=== PATIENT | male | born 1980 | race Caucasian/White ===

== ENCOUNTER 2019-02-10 07:25 | Emergency (ER) | payer SELFPAY ==
--- NOTE | 2019-02-10 07:42 | EDM.PDOC ---
ED HPI GENERAL MEDICAL PROBLEM - General Chief Complaint: Upper Extremity Injury/Pain Stated Complaint: POSSIBLE BROKEN RIGHT HAND Time Seen by Provider: 02/10/19 07:34 - History of Present Illness INITIAL COMMENTS - FREE TEXT/NARRATIVE: HISTORY AND PHYSICAL: History of present illness: Patient is a 38-year-old white male presents 3 days status post injury to his right hand and wrist that occurred when he punched a car dashboard who presents with concern of right hand and wrist pain denies other trauma or concern Review of systems: As per history of present illness and below otherwise all systems reviewed and negative. Past medical history: As per history of present illness and as reviewed below otherwise noncontributory. Surgical history: As per history of present illness and as reviewed below otherwise noncontributory. Social history: No reported history of drug or alcohol abuse. Family history: As per history of present illness and as reviewed below otherwise noncontributory. Physical exam: HEENT: Atraumatic, normocephalic, pupils reactive, negative for conjunctival pallor or scleral icterus, mucous membranes moist, throat clear, neck supple, nontender, trachea midline. Lungs: Clear to auscultation, breath sounds equal bilaterally, chest nontender. Heart: S1S2, regular, negative for clicks, rubs, or JVD. Abdomen: Soft, nondistended, nontender. Negative for masses or hepatosplenomegaly. Negative for costovertebral tenderness. Pelvis: Stable nontender. Genitourinary: Deferred. Rectal: Deferred. Extremities: Patient has tenderness over the dorsal aspect of his wrist and hand is no gross deformity CMS and neurovascular exams unremarkable Neuro: Awake, alert, oriented. Cranial nerves II through XII unremarkable. Cerebellum unremarkable. Motor and sensory unremarkable throughout. Exam nonfocal. Diagnostics: X-ray right hand/wrist Therapeutics: Velcro splint Impression: #1 hand/wrist injury Definitive disposition and diagnosis as appropriate pending reevaluation and review of above. - Related Data Allergies Allergy/AdvReac Type Severity Reaction Status Date / Time No Known Allergies Allergy Verified 02/10/19 07:36 Home Meds: Home Meds . [No Known Home Meds] 02/10/19 [History] Review of Systems - Review of Systems Review Of Systems: Comprehensive ROS is negative, except as noted in HPI. ED EXAM, GENERAL - Physical Exam Exam: See Below (See dictation) Course - Orders/Labs/Meds Orders: Active Orders 24 hr Category Date Time Status Hand Comp Min 3V Rt [CR] Stat Exams 02/10/19 07:32 Ordered Wrist Comp Min 3V Rt [CR] Stat Exams 02/10/19 07:32 Ordered Departure - Departure Time of Disposition: 07:40 Disposition: Home, Self-Care 01 Condition: Good Clinical Impression: Hand injury, Wrist injury - Discharge Information Referrals: PCP,None [Primary Care Provider] - Additional Instructions: The following information is given to patients seen in the emergency department who are being discharged to home. This information is to outline your options for follow-up care. We provide all patients seen in our emergency department with a follow-up referral. The need for follow-up, as well as the timing and circumstances, are variable depending upon the specifics of your emergency department visit. If you don't have a primary care physician on staff, we will provide you with a referral. We always advise you to contact your personal physician following an emergency department visit to inform them of the circumstance of the visit and for follow-up with them and/or the need for any referrals to a consulting specialist. The emergency department will also refer you to a specialist when appropriate. This referral assures that you have the opportunity for followup care with a specialist. All of these measure are taken in an effort to provide you with optimal care, which includes your followup. Under all circumstances we always encourage you to contact your private physician who remains a resource for coordinating your care. When calling for followup care, please make the office aware that this follow-up is from your recent emergency room visit. If for any reason you are refused follow-up, please contact the [facility] emergency department at and asked to speak to the emergency department charge nurse. [] - My Orders Last 24 Hours: My Active Orders 02/10/19 07:32 Hand Comp Min 3V Rt [CR] Stat Wrist Comp Min 3V Rt [CR] Stat - Assessment/Plan Last 24 Hours: My Active Orders 02/10/19 07:32 Hand Comp Min 3V Rt [CR] Stat Wrist Comp Min 3V Rt [CR] Stat
--- NOTE | 2019-02-10 07:55 | CR ---
INDICATION: Right hand injury. TECHNIQUE: Three views of the right hand. COMPARISON: Today`s right wrist x-rays. FINDINGS: Dorsal soft tissue swelling over the metacarpal heads. No fracture, subluxation or other abnormality. IMPRESSION: Unremarkable except for soft tissue swelling dorsal to the metacarpal heads. Dictated by Clement Jung MD @ Feb 10 2019 7:50AM Signed by Dr. Clement Jung @ Feb 10 2019 7:53AM
--- NOTE | 2019-02-10 07:55 | CR ---
INDICATION: Right wrist injury. TECHNIQUE: Three views of the right wrist. COMPARISON: Today`s right hand x-rays. FINDINGS: No fracture, subluxation or other abnormality. CONCLUSION: Negative right wrist. Dictated by Clement Jung MD @ Feb 10 2019 7:53AM Signed by Dr. Clement Jung @ Feb 10 2019 7:54AM
== END 2019-02-10 08:13 | disposition home or self-care (01) ==
LOC: MW.ED 07:25
DX: S49.91XA Unspecified injury of right shoulder and upper arm, initial encounter (principal); W22.09XA Striking against other stationary object, initial encounter
CPT/HCPCS: 29125; 73110-26-RT; 73110-RT; 73130-26-RT; 73130-RT; 99282; 99283-25

== ENCOUNTER 2019-04-19 05:50 | Emergency (ER) | payer OTHER ==
--- NOTE | 2019-04-19 06:04 | EDM.PDOC ---
ED HPI GENERAL MEDICAL PROBLEM - General Chief Complaint: Genitourinary Problem Stated Complaint: BLOOD IN URINE, PAIN WHEN URINATING Time Seen by Provider: 04/19/19 05:54 Source of Information: Reports: Patient History Limitations: Reports: No Limitations - History of Present Illness INITIAL COMMENTS - FREE TEXT/NARRATIVE: CC hematuria HPI: This is a 38 year old male with sudden onset left flank pain and hematuria for the past few hours. Patient denies any trauma nausea vomiting constipation diarrhea or dysuria PMHX/PSHX: Negative Social HX: Is a tobacco smoker but otherwise negative for drugs or alcohol ROS: Negative other than for genitourinary patient complaining of flank pain and hematuria PE: VS rile vital signs stable General: No apparent distress Head: Atraumatic normocephalic no lumps bumps or bruises Eyes: EOMI PERRLA Ears: TMs intact no hemotympanum no signs of infection no mastoid tenderness Nose: No epistaxis nares patent no septal wall hematoma Throat: Pharyngeal erythema or exudate no tonsillar enlargement Neck: Supple, no cervical lymphadenopathy Chest wall: No point tenderness Heart: Regular rate and rhythm without murmur gallop or rub Lungs: There to auscultation and percussion without rales rhonchi or wheeze Abdomen: Soft nontender nondistended without guarding rigidity or rebound Neck: No spinal point tenderness full range of motion in all 6 directions Back: No spinal paraspinal is left CVA tenderness Extremities: full rom through out. no effusions skin: Warm dry intact no rashes MDM/ED Course: Differential diagnosis: Aortic dissection pyelonephritis ureterolithiasis ED Course: Diagnosis: Disposition: Duration: Hour(s): left groin/urinary Pain Score (Numeric/FACES): 10 - Related Data Allergies Allergy/AdvReac Type Severity Reaction Status Date / Time No Known Allergies Allergy Verified 04/12/19 15:21 Home Meds: Home Meds Acetaminophen/HYDROcodone [[place] 325-5 MG] 1 tab PO Q4H #15 tablet 04/19/19 [Rx] Sulfamethoxazole/Trimethoprim [Bactrim Ds Tablet] 1 each PO BID 5 Days #10 tablet 04/19/19 [Rx] Past Medical History HEENT History: Reports: None Cardiovascular History: Reports: None Respiratory History: Reports: None Gastrointestinal History: Reports: None Genitourinary History: Reports: None Musculoskeletal History: Reports: Other (See Below) Other Musculoskeletal History: Bilateral Hand Surgery and Bilateral Shoulder Surgery Neurological History: Reports: None Psychiatric History: Reports: None Endocrine/Metabolic History: Reports: None Hematologic History: Reports: None Immunologic History: Reports: None Oncologic (Cancer) History: Reports: None Dermatologic History: Reports: None - Infectious Disease History Infectious Disease History: Reports: None - Past Surgical History Head Surgeries/Procedures: Reports: None HEENT Surgical History: Reports: None Cardiovascular Surgical History: Reports: None Respiratory Surgical History: Reports: None GI Surgical History: Reports: None Male Surgical History: Reports: None Endocrine Surgical History: Reports: None Neurological Surgical History: Reports: None Musculoskeletal Surgical History: Reports: None Oncologic Surgical History: Reports: None Dermatological Surgical History: Reports: None Social & Family History - Family History Family Medical History: Noncontributory - Caffeine Use Caffeine Use: Reports: None ED ROS GENERAL - Review of Systems Review Of Systems: See Below ED EXAM, RENAL/ - Physical Exam Exam: See Below Text/Narrative:: See my dictation Course - Vital Signs Last Recorded V/S: Last Vital Signs Temp 36.5 C 04/19/19 05:59 Pulse 113 H 04/19/19 05:59 Resp 20 04/19/19 05:59 BP 143/92 H 04/19/19 05:59 Pulse Ox 99 04/19/19 05:59 - Orders/Labs/Meds Labs: Laboratory Tests 04/19/19 04/19/19 04/19/19 Range/Units 06:01 06:22 06:22 WBC 13.37 H (4.0-11.0) K/uL RBC 5.28 (4.50-5.90) M/uL Hgb 16.5 (13.0-17.0) g/dL Hct 48.5 (38.0-50.0) % MCV 91.9 (80.0-98.0) fL MCH 31.3 (27.0-32.0) pg MCHC 34.0 (31.0-37.0) g/dL RDW Std Deviation 45.7 (28.0-62.0) fl RDW Coeff of Chip 14 (11.0-15.0) % Plt Count 280 (150-400) K/uL MPV 9.30 (7.40-12.00) fL Neut % (Auto) 72.0 (48.0-80.0) % Lymph % (Auto) 15.6 L (16.0-40.0) % [place] % (Auto) 11.8 (0.0-15.0) % Eos % (Auto) 0.5 (0.0-7.0) % Baso % (Auto) 0.1 (0.0-1.5) % Neut # (Auto) 9.6 H (1.4-5.7) K/uL Lymph # (Auto) 2.1 (0.6-2.4) K/uL [place] # (Auto) 1.6 H (0.0-0.8) K/uL Eos # (Auto) 0.1 (0.0-0.7) K/uL Baso # (Auto) 0.0 (0.0-0.1) K/uL Nucleated RBC % 0.0 /100WBC Nucleated RBCs # 0 K/uL Sodium 141 (136-148) mmol/L Potassium 3.4 L (3.5-5.1) mmol/L Chloride 103 (98-107) mmol/L Carbon Dioxide 27.5 (21.0-32.0) mmol/L BUN 12 (7.0-18.0) mg/dL Creatinine 1.1 (0.8-1.3) mg/dL Est Cr Clr Drug Dosing 98.88 mL/min Estimated GFR (MDRD) > 60.0 ml/min Glucose 124 H (74-106) mg/dL Calcium 8.7 (8.5-10.1) mg/dL Urine Color RED Urine Appearance CLOUDY Urine pH 5.0 (5.0-8.0) Ur Specific [place] >= 1.030 (1.001-1.035) Urine Protein >=300 H (NEGATIVE) mg/dL Urine Glucose (UA) 250 H (NEGATIVE) mg/dL Urine Ketones TRACE H (NEGATIVE) mg/dL Urine Occult Blood LARGE H (NEGATIVE) Urine Nitrite POSITIVE H (NEGATIVE) Urine Bilirubin SMALL H (NEGATIVE) Urine Ictotest NEGATIVE Urine Urobilinogen 2.0 H (<2.0) EU/dL Ur Leukocyte Esterase SMALL H (NEGATIVE) Urine RBC TOO NUMEROUS TO CT (0-2/HPF) Urine WBC 5-7 (0-5/HPF) Ur Epithelial Cells 0-1 (NONE-FEW) Urine Bacteria 1+ H (NEGATIVE) Meds: Medications Discontinued Medications Generic Name Dose Route Start Last Admin Trade Name Maryanne PRN Reason Stop Dose Admin Ketorolac Tromethamine 30 mg 04/19/19 06:52 04/19/19 06:59 Toradol IVPUSH 04/19/19 06:53 30 mg ONETIME ONE Administration Departure - Departure Time of Disposition: 07:13 Disposition: Home, Self-Care 01 Condition: Good Clinical Impression: UTI, Urinary tract infectious disease, Kidney stone - Discharge Information Instructions: Kidney Stones, [id number], Urinary Tract Infection, Adult, Easy -to-Read Referrals: PCP,None [Primary Care Provider] - Vani Gauthier MD [Physician] - Forms: ED Department Discharge Additional Instructions: Follow-up with Dr. Gauthier on Monday return if getting worse in any way. Take antibiotics until gone. Push fluids Sepsis Event Note - Focused Exam Vital Signs: Vital Signs Temp Pulse Resp BP Pulse Ox 04/19/19 05:59 36.5 C 113 H 20 143/92 H 99 Date Exam was Performed: 04/19/19 Time Exam was Performed: 07:08
[2019-04-19 06:47] LABS: BLOOD UREA NITROGEN,BUN 12 mg/dL (7.0-18.0); CARBON DIOXIDE,CO2 27.5 mmol/L (21.0-32.0); CHLORIDE,CL 103 mmol/L (98-107); GLUCOSE RANDOM 124 mg/dL (74-106); POTASSIUM,K 3.4 mmol/L (3.5-5.1); SODIUM,NA 141 mmol/L (136-148)
[2019-04-19] MEDS ORDERED: Ketorolac 30 MG/ML SDV IVPUSH ONE (06:52)
--- NOTE | 2019-04-19 07:01 | CT ---
Indication: Hematuria. Left flank pain. Technique: A CT volumetric acquisition was performed of the abdomen and pelvis without IV contrast. Comparison: None Findings: The lung bases are clear. The unenhanced liver, spleen and pancreas appear normal. There is no evidence of inflammatory stranding about the pancreas. The gallbladder and bile ducts appear normal. The adrenal glands have normal morphology. There is no evidence of a calculus within either kidney or ureter and no evidence of edema or hydronephrosis within either kidney. There is no evidence of perinephric fat stranding. The abdominal aorta and iliac arteries appear normal. The appendix is visualized in the right lower quadrant and appears normal. There is no evidence of inflammatory change or obstruction within the small intestine or colon. Prostate gland and partially filled urinary bladder appear normal. Impression: No acute process identified. No evidence of renal or ureteral calculus. Please note that all CT scans at this facility use dose modulation, iterative reconstruction, and/or weight-based dosing when appropriate to reduce radiation dose to as low as reasonably achievable. Dictated by Thierno Reinoso MD @ Apr 19 2019 6:54AM Signed by Dr. Thierno Reinoso @ Apr 19 2019 7:00AM
== END 2019-04-19 07:46 | disposition home or self-care (01) ==
LOC: MW.ED 05:50
DX: N39.0 Urinary tract infection, site not specified (principal); N20.0 Calculus of kidney
CPT/HCPCS: 36415; 74150; 80048; 81001; 85025; 96374; 99284; J1885; 99283

== ENCOUNTER 2019-05-24 09:03 | Emergency (ER) | payer OTHER ==
--- NOTE | 2019-05-24 09:51 | CT ---
CT cervical spine Technique: Multiple axial sections were obtained from above C1 inferiorly to the mid T2 level. Reconstructed sagittal and coronal images were obtained. Findings: Vertebral body heights and disc spaces are maintained. Vertebral bodies and posterior arches are intact. No fracture is seen. No bony central or bony neural foraminal stenosis is seen. No abnormal subluxation is appreciated. Impression: 1. Nothing acute is appreciated on CT study of the cervical spine. Diagnostic code #1 This report was dictated in [place] Standard Time
--- NOTE | 2019-05-24 09:51 | CT ---
Head CT Technique: Multiple axial sections through the brain were obtained. Intravenous contrast was not utilized. Comparison: No prior intracranial imaging is available. Findings: Ventricles along with basal cisterns and sulci over the convexities are within normal limits for the patient's age. No abnormal parenchymal densities are seen. No evidence of intracranial hemorrhage. No midline shift or mass effect is seen. Visualized paranasal sinuses and mastoid sinuses show nothing acute. No acute calvarial abnormality is seen on bone window settings. Impression: 1. Nothing acute is identified on noncontrast head CT exam. Diagnostic code #1 This report was dictated in [place] Standard Time
--- NOTE | 2019-05-24 09:51 | CT ---
CT chest Technique: Multiple axial sections were obtained from above the lung apices inferiorly through the lung bases. Intravenous contrast was not utilized. Comparison: No prior chest imaging is available. Findings: Mediastinum and hilar regions show no adenopathy. No mediastinal hematoma is seen. Aorta shows no aneurysm. No axillary adenopathy is seen. No pericardial fluid is seen. Visualized upper abdominal structures shows no discrete abnormality. Lung window settings were reviewed. Mild dependent atelectasis is seen posteriorly within both lungs. Lungs show no acute parenchymal change. No pulmonary contusion or pleural effusions are noted. No pneumothorax is appreciated. Bone window settings were reviewed. No discrete rib fracture is appreciated. Lateral reconstructed images of the sternum show no discrete fracture. Vertebral body heights and disc spaces are maintained. Impression: 1. Nothing acute is appreciated on noncontrast CT study of the chest. Diagnostic code #2 This report was dictated in [place] Standard Time
--- NOTE | 2019-05-24 09:54 | CT ---
CT abdomen and pelvis Technique: Multiple axial sections were obtained from above the dome of the diaphragm inferiorly through the pubic symphysis. Intravenous and oral contrast not utilized. Comparison: No prior abdominal imaging is available. Findings: Liver contains no focal parenchymal abnormality. Spleen appears within normal limits. Adrenal glands show no nodule. Pancreas is within normal limits. Gallbladder contains no calcified gallstones. Kidneys show no abnormal calcifications or other discrete abnormality. Aorta shows no aneurysm. No retroperitoneal adenopathy or mesenteric abnormalities are seen. Appendix is seen which is normal in size. No pelvic mass or adenopathy is seen. No free fluid or inflammatory change is seen within the abdomen or within the pelvis. Bone window settings were reviewed. Vertebral body heights and disc spaces are maintained within the thoracic spine. No discrete fracture within the lumbar spine is seen. Pelvis and bilateral hips shows no discrete fracture. Impression: 1. Nothing acute is appreciated on noncontrast CT study of the abdomen and pelvis. Diagnostic code #1 This report was dictated in [place] Standard Time
--- NOTE | 2019-05-24 10:27 | CR ---
Left knee: AP, lateral and sunrise patellar views of the left knee were obtained. Comparison: No prior knee exam. Medial and lateral joint compartments are maintained in height. No joint effusion is seen. No fracture or other bony abnormality is identified. Impression: 1. No abnormality is identified on left knee exam. Diagnostic code #1 This report was dictated in [place] Standard Time
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
== END 2019-05-24 10:43 | disposition home or self-care (01) ==
LOC: MW.ED 09:03
DX: S00.31XA Abrasion of nose, initial encounter (principal); F17.210 Nicotine dependence, cigarettes, uncomplicated; V57.6XXA Passenger in pick-up truck or van injured in collision with fixed or stationary object in traffic accident, initial encounter
CPT/HCPCS: 70450; 70450-26; 71250; 71250-26; 72125; 72125-26; 73562-26-LT; 73562-LT; 74176; 74176-26; 99283; 99284-25

== ENCOUNTER 2019-05-30 15:42 | Emergency (ER) | payer SELFPAY ==
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
== END 2019-05-30 16:55 | disposition home or self-care (01) ==
LOC: MW.ED 15:42
DX: K13.0 Diseases of lips (principal); F17.210 Nicotine dependence, cigarettes, uncomplicated
CPT/HCPCS: 99283